=== PATIENT | male | born 1935 | race African-American/Black ===

== ENCOUNTER 2016-12-04 07:07 | Day surgery (SDC) | payer MEDICARE, OTHER ==
[~2016-12-04 07:07] MED LIST: KETOROLAC TROMETHAMINE 0.45% 4 DROP/0.4 ML DROPERETTE OD PRN
[2016-12-04] MEDS ORDERED: MIDAZOLAM 2 MG/2 ML INJ ONE (07:21)
[2016-12-04] MEDS ORDERED: EPINEPHRINE INJ/PF 1 MG/1 ML AMPULE ONE (07:25)
[2016-12-04] MEDS ORDERED: TOBRAMYCIN SULFATE/DEXAMETH OPH OINTMENT 3.5 GM ONE (07:26)
[2016-12-04] MEDS ORDERED: CHONDR SU A NA/HYALUR INTRAOC KIT (SURGICARE) ONE (07:26)
[2016-12-04] MEDS ORDERED: LIDOCAINE 1% INJ-PF (10 MG/ML) 30 ML SDV ONE (07:26)
[2016-12-04] MEDS: CYCLOPENTOLATE 0.2%/PHENYLEPHRINE 1% OPH SOLN 2 ML OD PRN ×3 (07:35→07:56)
[2016-12-04] MEDS: TROPICAMIDE 1% OPH SOLN 3 ML OD PRN ×3 (07:35→07:56)
[2016-12-04] MEDS: BESIFLOXACIN HCL 0.6% OPH SUSP 5 ML BOTTLE OD PRN ×3 (07:35→08:38)
[2016-12-04] MEDS: LIDOCAINE 3.5% OPH GEL/PF 1 ML/TUBE OD PRN ×3 (07:35→08:18)
== END 2016-12-04 09:27 | disposition home or self-care (01) ==
LOC: SC 07:07
PROVIDERS: ATTEND Ophthalmology
PROC: 089230Z Drainage of Right Anterior Chamber with Drainage Device, Percutaneous Approach (ICD-10-PCS; 2016-12-04)
PROC: 08RJ3JZ Replacement of Right Lens with Synthetic Substitute, Percutaneous Approach (ICD-10-PCS; principal; 2016-12-04 08:15)
DX: H25.11 Age-related nuclear cataract, right eye (principal); H40.1130 Primary open-angle glaucoma, bilateral, stage unspecified; M19.90 Unspecified osteoarthritis, unspecified site; K21.9 Gastro-esophageal reflux disease without esophagitis; I10 Essential (primary) hypertension; E78.00 Pure hypercholesterolemia, unspecified; Z79.82 Long term (current) use of aspirin; Z79.899 Other long term (current) drug therapy; Z86.73 Personal history of transient ischemic attack (TIA), and cerebral infarction without residual deficits
CPT/HCPCS: 0191T; 66984; 142; A9270 GY; C1783; J0171; J2250; J3490; V2630

== ENCOUNTER 2016-12-18 06:57 | Day surgery (SDC) | payer MEDICARE, OTHER ==
[2016-12-18] MEDS ORDERED: EPINEPHRINE INJ/PF 1 MG/1 ML AMPULE ONE (07:34)
[2016-12-18] MEDS ORDERED: CHONDR SU A NA/HYALUR INTRAOC KIT (SURGICARE) ONE (07:34)
[2016-12-18] MEDS ORDERED: LIDOCAINE 1% INJ-PF (10 MG/ML) 30 ML SDV ONE (07:34)
[2016-12-18] MEDS ORDERED: TOBRAMYCIN SULFATE/DEXAMETH OPH OINTMENT 3.5 GM ONE (07:34)
[2016-12-18] MEDS: BESIFLOXACIN HCL 0.6% OPH SUSP 5 ML BOTTLE OS PRN ×4 (07:46→08:35)
[2016-12-18] MEDS: TROPICAMIDE 1% OPH SOLN 3 ML OS PRN ×4 (07:46→08:06)
[2016-12-18] MEDS: CYCLOPENTOLATE 0.2%/PHENYLEPHRINE 1% OPH SOLN 2 ML OS PRN ×4 (07:46→08:06)
[2016-12-18] MEDS: KETOROLAC TROMETHAMINE 0.45% 4 DROP/0.4 ML DROPERETTE OS PRN ×2 (07:47→07:49)
[2016-12-18] MEDS: TETRACAINE HCL 0.5% OPH SOLN 0.6 ML DROPERETTE OS PRN ×4 (07:47→08:11)
[2016-12-18] MEDS ORDERED: MIDAZOLAM 2 MG/2 ML INJ ONE (07:56)
[2016-12-18] MEDS ORDERED: FENTANYL CITRATE INJ/PF 100 MCG/2 ML AMPUL ONE (07:56)
== END 2016-12-18 09:17 | disposition home or self-care (01) ==
LOC: SC 06:57
PROVIDERS: ATTEND Ophthalmology
PROC: 08RK3JZ Replacement of Left Lens with Synthetic Substitute, Percutaneous Approach (ICD-10-PCS; 2016-12-18)
PROC: 089330Z Drainage of Left Anterior Chamber with Drainage Device, Percutaneous Approach (ICD-10-PCS; principal; 2016-12-18 08:15)
DX: H25.12 Age-related nuclear cataract, left eye (principal); H40.1121 Primary open-angle glaucoma, left eye, mild stage; Z98.41 Cataract extraction status, right eye; I10 Essential (primary) hypertension; E78.00 Pure hypercholesterolemia, unspecified; M19.90 Unspecified osteoarthritis, unspecified site; K21.9 Gastro-esophageal reflux disease without esophagitis; Z86.73 Personal history of transient ischemic attack (TIA), and cerebral infarction without residual deficits; Z79.82 Long term (current) use of aspirin; Z79.899 Other long term (current) drug therapy; Z87.891 Personal history of nicotine dependence
CPT/HCPCS: 0191T; 66984; 142; C1783; J0171; J2250; J3010; J3490; V2630